=== PATIENT | male | born 1950 | race Caucasian/White ===

== ENCOUNTER 2018-10-26 18:34 | Emergency (ER) | payer OTHER | END 2018-10-26 21:35 | disposition home or self-care (01) | LOC: FTE 21:35 | DX: S89.91XA Unspecified injury of right lower leg, initial encounter (principal); I10 Essential (primary) hypertension; E11.9 Type 2 diabetes mellitus without complications; W22.8XXA Striking against or struck by other objects, initial encounter; Y92.9 Unspecified place or not applicable; Z79.84 Long term (current) use of oral hypoglycemic drugs; Z98.61 Coronary angioplasty status | CPT/HCPCS: 93971; 99284-25 ==